=== PATIENT | female | born 1990 | race Caucasian/White ===

== ENCOUNTER 2017-04-30 18:48 | Emergency (ER) | payer BC ==
[~2017-04-30] VITALS: Ht 162.6 cm; Wt 137.0 kg
[2017-04-30 18:52] VITALS: TEMP 99.4
[2017-04-30] MEDS ORDERED: LEXAPRO 10MG10 MG PO (18:54)
[2017-04-30] MEDS ORDERED: WELLBUTRIN XL300 M1 PO (18:55)
[2017-04-30] MEDS ORDERED: CLARITIN 1010 MG/TAB PO (18:56)
[2017-04-30] MEDS ORDERED: PROAIR HFA0.09 MG/AC IH (18:56)
[2017-04-30 19:31] LABS: BASO % 0.1 % (0.0-2.0); EOS # 0.1 (0.0-0.7); EOS % 0.7 % (0-4.0); GRAN % 88.8 % (42.2-75.2); HEMATOCRIT 41.8 % (37.0-47.0); HEMOGLOBIN 13.7 g/dl (12.5-16.0); LYMPH # 0.9 (1.2-3.4); LYMPH % 6.8 % (20.0-51.0); MEAN CELL VOLUME 86 fl (80.0-100.0); MEAN CORPUSCULAR HEMOGLOBIN 28 pg (27.0-31.0); MEAN CORPUSCULAR HGB CONC 33 g/dl (33.0-37.0); MEAN PLATELET VOLUME 10.4 fl (7.4-10.4); MONO # 0.4 (0.1-0.6); PLATELET COUNT 297 K/mm3 (130-400); RED BLOOD COUNT 4.88 M/mm3 (4.10-5.30); REDCELL DISTRIBUTION WIDTH-CV 14.2 % (11.5-14.5); WHITE BLOOD COUNT 13.5 K/mm3 (4.8-10.8)
[2017-04-30 19:34] LABS: PH 5 (5-8); URINE APPEARANCE Hazy; URINE BACTERIA Rare /hpf; URINE BILIRUBIN Negative (NEGATIVE); URINE BLOOD 1+ (NEGATIVE); URINE COLOR Yellow; URINE GLUCOSE Negative (NEGATIVE); URINE KETONE Trace (NEGATIVE); URINE RBC 0-2 /hpf; URINE UROBILINOGEN Negative (NEGATIVE)
[2017-04-30 19:40] LABS: ADJUSTED CALCIUM 9.2 mg/dL (8.4-10.2); ALBUMIN 4.4 gm/dL (3.5-5.0); BILIRUBIN,TOTAL 0.6 mg/dL (0.0-1.0); CALCIUM 9.5 mg/dL (8.4-10.2); CREATININE, serum 0.69 mg/dL (0.52-1.25); POTASSIUM 4.1 mmol/L (3.4-5.0)
[2017-04-30] MEDS ORDERED: ZOFRAN ODT4 MG PO (21:40)
[2017-04-30] MEDS ORDERED: PHENERGAN25 MG RC (21:40)
[2017-04-30 22:30] VITALS: BP 128/75; PULSE 92
== END 2017-04-30 22:30 | disposition home or self-care (01) ==
LOC: COL.ER 18:48
PROVIDERS: Emergency Medicine
DX: R19.7 Diarrhea, unspecified (principal); R11.10 Vomiting, unspecified; R10.84 Generalized abdominal pain; R00.0 Tachycardia, unspecified; F32.9 Major depressive disorder, single episode, unspecified; Z97.5 Presence of (intrauterine) contraceptive device; E66.9 Obesity, unspecified; Z68.43 Body mass index [BMI] 50.0-59.9, adult
CPT/HCPCS: J2270; J2405; J7030

== ENCOUNTER 2019-05-03 00:27 | Emergency (ER) | payer OTHER ==
[~2019-05-03] VITALS: Ht 162.6 cm; Wt 140.9 kg
[~2019-05-03 00:27] MED LIST changes: -BUSPAR10 MG; -CYMBALTA 60MG60 MG; -DESYREL DIVIDO150 M1 PO; -IMITREX50 MG PO; -RISPERDAL 1M1 MG/TAB PO; -SPRINTEC 35 MCG1 TAB PO
[2019-05-03 00:31] VITALS: BP 131/93; TEMP 98
[2019-05-03] MEDS ORDERED: CYMBALTA 60MG60 MG (00:38)
[2019-05-03] MEDS ORDERED: BUSPAR10 MG (00:39)
[2019-05-03] MEDS ORDERED: DESYREL DIVIDO150 M1 PO (00:40)
[2019-05-03] MEDS ORDERED: SPRINTEC 35 MCG1 TAB PO (00:40)
[2019-05-03] MEDS ORDERED: RISPERDAL 1M1 MG/TAB PO (00:40)
[2019-05-03] MEDS ORDERED: IMITREX50 MG PO (00:41)
[2019-05-03 01:30] VITALS: PULSE 89
[2019-05-03 02:07] LABS: HIV 1/2 Antibodies Non-Reactive; HIV-1p24 Antigen Non-Reactive
[2019-05-03 15:28] LABS: HEPATITIS B SURFACE ANTIGEN Negative (Negative); HEPATITIS C VIRUS ANTIBODY Negative (Negative)
== END 2019-05-03 01:30 | disposition home or self-care (01) ==
LOC: COL.ER 00:27
PROVIDERS: Nurse Practitioner
DX: S69.92XA Unspecified injury of left wrist, hand and finger(s), initial encounter (principal); J45.909 Unspecified asthma, uncomplicated; E03.9 Hypothyroidism, unspecified; F32.9 Major depressive disorder, single episode, unspecified; Z87.891 Personal history of nicotine dependence; W46.1XXA Contact with contaminated hypodermic needle, initial encounter; Y92.59 Other trade areas as the place of occurrence of the external cause

== ENCOUNTER → 2019-05-03 | Outpatient (REF) ==
[~2019-05-03] MED LIST: BUSPAR10 MG; CLARITIN 1010 MG/TAB PO; CYMBALTA 60MG60 MG; DESYREL DIVIDO150 M1 PO; IMITREX50 MG PO; LEXAPRO 10MG10 MG PO; PHENERGAN25 MG RC; PROAIR HFA0.09 MG/AC IH; RISPERDAL 1M1 MG/TAB PO; SPRINTEC 35 MCG1 TAB PO; WELLBUTRIN XL300 M1 PO; ZOFRAN ODT4 MG PO
== END | disposition home or self-care (01) ==
LOC: COL.EMP 00:21
DX: Z02.89 Encounter for other administrative examinations (principal)

== ENCOUNTER 2019-11-19 17:31 | Emergency (ER) | payer SELFPAY ==
[~2019-11-19] VITALS: Ht 162.6 cm; Wt 137.7 kg
[~2019-11-19 17:31] MED LIST changes: +BUSPAR10 MG; +CYMBALTA 60MG60 MG; +DESYREL DIVIDO150 M1 PO; +IMITREX50 MG PO; +RISPERDAL 1M1 MG/TAB PO; +SPRINTEC 35 MCG1 TAB PO
[2019-11-19 17:41] VITALS: TEMP 98.6
[2019-11-19] MEDS ORDERED: VITAMIND3 5000 PO (18:45)
[2019-11-19] MEDS ORDERED: NATURAL MAGNES200 MG PO (18:45)
[2019-11-19] MEDS ORDERED: ZOO CHEWS1 CTB PO (18:46)
[2019-11-19] MEDS ORDERED: RT ADVAIR 228 DISKUS IH (18:47)
[2019-11-19 18:53] LABS: BASO % 0.2 % (0.0-2.0); EOS # 0.2 (0.0-0.7); EOS % 1.9 % (0-4.0); GRAN # 5.5 (1.4-6.5); HEMOGLOBIN 13.5 g/dl (12.5-16.0); LYMPH # 3.8 (1.2-3.4); LYMPH % 37.3 % (20.0-51.0); MEAN CELL VOLUME 88 fl (80.0-100.0); MEAN CORPUSCULAR HEMOGLOBIN 29 pg (27.0-31.0); MEAN CORPUSCULAR HGB CONC 33 g/dl (33.0-37.0); MEAN PLATELET VOLUME 10.3 fl (7.4-10.4); MONO # 0.6 (0.1-0.6); MONO % 6.3 % (1.7-9.3); PLATELET COUNT 329 K/mm3 (130-400); RED BLOOD COUNT 4.65 M/mm3 (4.10-5.30); REDCELL DISTRIBUTION WIDTH-CV 12.9 % (11.5-14.5)
[2019-11-19 19:08] LABS: ALBUMIN 4.7 gm/dL (3.5-5.0); BILIRUBIN,TOTAL 0.5 mg/dL (0.0-1.0); CALCIUM 9.8 mg/dL (8.4-10.2); CREATININE, serum 0.63 (0.52-1.25); POTASSIUM 4.4 mmol/L (3.4-5.0); TOTAL PROTEIN 8.4 gm/dL (6.4-8.2)
[2019-11-19 20:12] VITALS: BP 132/84; PULSE 79
== END 2019-11-19 20:23 | disposition home or self-care (01) ==
LOC: COL.ER 17:31
PROVIDERS: Nurse Practitioner Primary Care
DX: J22 Unspecified acute lower respiratory infection (principal); F32.9 Major depressive disorder, single episode, unspecified; F41.9 Anxiety disorder, unspecified; J45.909 Unspecified asthma, uncomplicated; G43.909 Migraine, unspecified, not intractable, without status migrainosus; Z79.899 Other long term (current) drug therapy; Z87.891 Personal history of nicotine dependence; Z20.828 Contact with and (suspected) exposure to other viral communicable diseases; Z98.890 Other specified postprocedural states; Z79.51 Long term (current) use of inhaled steroids
CPT/HCPCS: J2405; J7030